=== PATIENT | female | born 1985 | race American Indian/Alaskan Native ===

== ENCOUNTER 2017-07-12 23:15 | Emergency (ER) | payer MEDICAID, OTHER ==
[2017-07-12 23:26] VITALS: BP 112/80
== END 2017-07-13 01:19 | disposition left against medical advice (07) ==
LOC: ED 23:15
DX: F41.9 Anxiety disorder, unspecified (principal); Z53.21 Procedure and treatment not carried out due to patient leaving prior to being seen by health care provider